=== PATIENT | female | born 1950 | race Caucasian/White ===

== ENCOUNTER 2017-01-02 16:51 | Emergency (ER) | payer BC, MEDICARE ==
[~2017-01-02] VITALS: Ht 165.1 cm; Wt 68.0 kg
[2017-01-02 16:55] VITALS: Ht 165.1 cm; Wt 68.0 kg
[2017-01-02] MEDS ORDERED: HYDROCODONE/APAP (5/325) TAB PO ONE (19:30)
--- NOTE | 2017-01-02 19:36 | RADRPT ---
PROCEDURE: Right hand series CLINICAL INDICATION: Right hand pain. Injury TECHNIQUE: AP, lateral, and oblique views of the right hand were obtained COMPARISON: None FINDINGS: No acute fracture, dislocation, or articular abnormalities are seen. The soft tissue structures are intact. IMPRESSION: Unremarkable right hand series. RPTAT: HPNM Physician Chandler Date Time Electronically viewed and signed by Giles Arroyo Physician on 01/02/2017 19:36 /
--- NOTE | 2017-01-02 19:38 | RADRPT ---
PROCEDURE: Right humerus x-ray CLINICAL INDICATION: Status post fall with right arm pain TECHNIQUE: AP and lateral views of the humerus were obtained. COMPARISON: None FINDINGS: There is normal mineralization. Abnormal fracture lucency in the humeral neck is present with no significant displacement or angulat ion. The humeral shaft and distal humerus are unremarkable. The shoulder and elbow joints are normally aligned. There is mild proximal arm soft tissue swelling. RPTAT:HJJR IMPRESSION: Acute, closed, nondisplaced extra-articular neck fracture of the right humerus. Physician Noa Date Time Electronically viewed and signed by Physician Noa on 01/02/2017 19:37 /
--- NOTE | 2017-01-02 19:40 | RADRPT ---
PROCEDURE: XR shoulder. CLINICAL INDICATION: Status post fall with right shoulder pain TECHNIQUE: Three views of the right shoulder were performed. COMPARISON: Right humerus x-ray 01/02/2017 FINDINGS: Abnormal fracture lucencies are present in the humeral neck predominately in a horizontal manner. A n additional fracture line is seen through the base of the greater tuberosity. No displacement of si gnificance involving the fracture fragments is present . The joint spaces are preserved. Diffuse sof t tissue swelling is seen RPTAT:HJJR IMPRESSION: Acute, closed, extra-articular humeral neck and greater tuberosity base fractures of the right shoul mary with associated soft tissue swelling. No significant fracture fragment displacement is present. Physician Noa Date Time Electronically viewed and signed by Physician Noa on 01/02/2017 19:39 /
[2017-01-02] MEDS ORDERED: HYDR-906 PO (20:35)
[2017-01-02 20:51] VITALS: BP 121/57; PULSE 76; RESP 76
--- NOTE | 2017-01-02 21:39 | ERD ---
ER Documentation Chief Complaint Date/Time DATE: 01/02/17 TIME: 21:34 Chief Complaint right shoulder pain s/p trip/fall today, no head injury HPI 66-year-old female patient with no significant past medical history presents to the ED complaining of right shoulder pain after a trip and fall that occurred earlier today in [facility]. Denies any head or neck injuries. Denies any loss of consciousness. States that she was walking in an un-paved street actually tripped. Denies any chest pain, shortness of breath, abdominal pain, fever, nausea, vomiting. ROS All systems reviewed and are negative except as per history of present illness. Medications Home Meds Active Scripts Hydrocodone/Acetaminophen ([place] 5-325 Tablet) 1 Each Tablet, 1 TAB PO Q6H Y for PAIN, #14 TAB Prov:MADALYN FARFAN PA-C 01/02/17 Allergies Allergies: Coded Allergies: codeine (Verified Allergy, Unknown, 01/02/17) PMhx/Soc Medical and Surgical Hx: pt denies Medical Hx, pt denies Surgical Hx Hx Alcohol Use: No Hx Substance Use: No Hx Tobacco Use: No Smoking Status: Never smoker Physical Exam Vitals Vital Signs Date Time Temp Pulse Resp B/P Pulse Ox O2 Delivery O2 Flow Rate FiO2 01/02/17 20:51 76 76 121/57 97 Room Air 01/02/17 16:55 98.1 77 18 128/65 100 Physical Exam Const: [id number], well-nourished. In no acute distress. Head: Atraumatic, normocephalic Eyes: Normal Conjunctiva without injection. No purulent discharge. PERRL. EOMI ENT: Normal external ear. Ear canal without erythema. Tympanic membrane pearly nava without effusion or bulging. Nasal canal clear with normal turbinates. Moist oropharynx without tonsillar exudates. Non-erythematous pharynx. Uvula midline. No drooling. No trismus. Neck: Full range of motion. No meningismus. No cervical lymphadenopathy. Resp: Clear to auscultation bilaterally. No wheezing, rhonchi, rales, or crackles. No accessory muscle use. No retractions. Cardio: Regular rate and rhythm. No murmurs, rubs or gallops. Abd: Soft, non tender, non distended. Normal bowel sounds. No palpable masses. No rebound tenderness. No guarding. Skin: No petechiae or rashes Back: No midline tenderness. No CVA tenderness. Ecchymosis noted on the anterior portion of patient's right upper arm. Limited range of motion due to pain. No deformities noted. No clavicle tenderness. Slight tenderness palpation of the thenar aspect of patient's right hand. No snuffbox tenderness. Full range of motion of the elbow and wrists with function, extension. Ext: No cyanosis, or edema. Neur: Awake and alert. Psych: Normal Mood and Affect Results 24 hrs Current Medications Medications (Trade) Dose Ordered Sig/Jamar Route PRN Reason Start Time Stop Time Status Last Admin Dose Admin Acetaminophen/ Hydrocodone Bitart ([place] (5/325)) 1 tab ONCE ONCE PO 01/02/17 19:30 01/02/17 19:31 DC 01/02/17 19:20 Procedures/MDM 66-year-old female patient with no significant past medical history presents to the ED complaining of right shoulder injury that occurred earlier today. Patient is afebrile and nontoxic-appearing. Patient has normal vital signs. A right shoulder, right humerus, right hand xray was ordered to further evaluate patient. PROCEDURE: Right hand series CLINICAL INDICATION: Right hand pain. Injury TECHNIQUE: AP, lateral, and oblique views of the right hand were obtained COMPARISON: None FINDINGS: No acute fracture, dislocation, or articular abnormalities are seen. The soft tissue structures are intact. IMPRESSION: Unremarkable right hand series. PROCEDURE: Right humerus x-ray CLINICAL INDICATION: Status post fall with right arm pain TECHNIQUE: AP and lateral views of the humerus were obtained. COMPARISON: None FINDINGS: There is normal mineralization. Abnormal fracture lucency in the humeral neck is present with no significant displacement or angulation. The humeral shaft and distal humerus are unremarkable. The shoulder and elbow joints are normally aligned. There is mild proximal arm soft tissue swelling. RPTAT:HJJR IMPRESSION: Acute, closed, nondisplaced extra-articular neck fracture of the right humerus. PROCEDURE: XR shoulder. CLINICAL INDICATION: Status post fall with right shoulder pain TECHNIQUE: Three views of the right shoulder were performed. COMPARISON: Right humerus x-ray 01/02/2017 FINDINGS: Abnormal fracture lucencies are present in the humeral neck predominately in a horizontal manner. An additional fracture line is seen through the base of the greater tuberosity. No displacement of significance involving the fracture fragments is present . The joint spaces are preserved. Diffuse soft tissue swelling is seen RPTAT:HJJR IMPRESSION: Acute, closed, extra-articular humeral neck and greater tuberosity base fractures of the right shoulder with associated soft tissue swelling. No significant fracture fragment displacement is present. Patient is placed in a shoulder immobilizer. Splint Assessment: Neurovascularly intact pre and post splint placement with good fit. Patient's extremity symptoms have stabilized while they have been evaluated in the department and are appropriate for outpatient follow up. No evidence of dislocations, compartment syndrome, neurologic injury, vascular injury, open joint, open fracture, tendon laceration, septic arthritis, osteomyelitis, DVT, foreign body, or other emergent conditions. Discharge medications: [place] Follow up with an orthopedic physician in 1-2 days. Instructed patient to return to the ED sooner for any worsening symptoms. Patient's questions were answered. Patient understood and agreed with discharge plan. Patient discharged stable. Departure Diagnosis: Primary Impression: Shoulder injury Encounter type: initial encounter Laterality: right Qualified Code: S49.91XA - Injury of right shoulder, initial encounter Condition: Stable Patient Instructions: Fracture, Shoulder Referrals: [facility] YOU HAVE RECEIVED A MEDICAL SCREENING EXAM AND THE RESULTS INDICATE THAT YOU DO NOT HAVE A CONDITION THAT REQUIRES URGENT TREATMENT IN THE EMERGENCY DEPARTMENT. FURTHER EVALUATION AND TREATMENT OF YOUR CONDITION CAN WAIT UNTIL YOU ARE SEEN IN YOUR DOCTORS OFFICE WITHIN THE NEXT 1-2 DAYS. IT IS YOUR RESPONSIBILITY TO MAKE AN APPOINTMENT FOR FOLOW-UP CARE. IF YOU HAVE A PRIMARY DOCTOR --you should call your primary doctor and schedule an appointment IF YOU DO NOT HAVE A PRIMARY DOCTOR YOU CAN CALL OUR PHYSICIAN REFERRAL HOTLINE AT IF YOU CAN NOT AFFORD TO SEE A PHYSICIAN YOU CAN CHOSE FROM THE FOLLOWING [facility] [address] [facility]. [facility] [address] [facility]. [facility] [address] [facility]. [facility] [address] [facility]. [facility] [address] [facility]. [facility]. [address] [facility]. [facility] YOU HAVE RECEIVED A MEDICAL SCREENING EXAM AND THE RESULTS INDICATE THAT YOU DO NOT HAVE A CONDITION THAT REQUIRES URGENT TREATMENT IN THE EMERGENCY DEPARTMENT. FURTHER EVALUATION AND TREATMENT OF YOUR CONDITION CAN WAIT UNTIL YOU ARE SEEN IN YOUR DOCTORS OFFICE WITHIN THE NEXT 1-2 DAYS. IT IS YOUR RESPONSIBILITY TO MAKE AN APPOINTMENT FOR FOLOW-UP CARE. IF YOU HAVE A PRIMARY DOCTOR --you should call your primary doctor and schedule and appointment IF YOU DO NOT HAVE A PRIMARY DOCTOR YOU CAN CALL OUR PHYSICIAN REFERRAL HOTLINE AT . IF YOU CAN NOT AFFORD TO SEE A PHYSICIAN YOU CAN CHOSE FROM THE FOLLOWING [facility] INSTITUTIONS: [facility] [address] [place] [address] [facility] [address] [place] [address] [facility] [address] [place] [address] [facility] Urgent Care 7 a.m.- 11 p.m. Every Day of the Week NO APPOINTMENT OR AUTHORIZATION NEEDED [facility] Hours: Mon-Fri 9:00 AM - 5:00 PM Additional Instructions: You have been given a medicine which may cause drowsiness.DO NOT DRIVE OR OPERATE DANGEROUS MACHINERY while taking this medicine! Call your orthopedic physician in 1-2 day for further evaluation and treatment. See the doctor sooner or return here if your condition worsens before your appointment time. MADALYN FARFAN PA-C Jan 02, 2017 21:39
== END 2017-01-02 20:54 | disposition home or self-care (01) ==
LOC: FTE 16:51
DX: S49.91XA Unspecified injury of right shoulder and upper arm, initial encounter (principal); W01.0XXA Fall on same level from slipping, tripping and stumbling without subsequent striking against object, initial encounter; Y92.9 Unspecified place or not applicable